=== PATIENT | female | born 1990 | race Caucasian/White ===

== ENCOUNTER 2022-01-08 10:13 | Emergency (ER) | payer OTHER, SELFPAY ==
[2022-01-08 10:23] VITALS: BP 115/75; PULSE 67; RESP 18; TEMP 37.7; O2SAT 100
--- NOTE | 2022-01-08 10:51 | PC.NURSE ---
pt to the intake desk and states that i see that you are really full so im going to go to [facility] ambulated to the exit with no difficulty
== END 2022-01-09 03:37 | disposition left against medical advice (07) ==
LOC: ANHED 11:07
PROVIDERS: PCP Nurse Practitioner Family
DX: Z53.21 Procedure and treatment not carried out due to patient leaving prior to being seen by health care provider (principal)
CPT/HCPCS: 99199